=== PATIENT | male | born 1965 | race American Indian/Alaskan Native ===

== ENCOUNTER 2019-10-24 08:00 | Outpatient (CLI) | payer OTHER ==
[2019-10-17 12:32] LABS: Basophils % (Auto) 1.1 % (0.0-1.8); Eosinophils # (Auto) 0.4 K/mm3 (0.0-0.4); Eosinophils % (Auto) 8.4 % (0.0-4.3); Hematocrit 39.2 % (35.5-45.6); Hemoglobin 13.4 gm/dl (11.8-15.2); Lymphocytes % (Auto) 24.2 % (13.4-35.0); Mean Corpuscular HGB Conc 34 % (32-34); Mean Corpuscular Volume 100 fl (84-94); Monocytes # (Auto) 0.5 K/mm3 (0.0-0.8); Monocytes % (Auto) 12.1 % (0.0-7.3); Platelet Count 338 K/mm3 (140-440); Red Blood Count 3.94 M/mm3 (3.65-5.03)
[2019-10-17 12:44] LABS: INR 0.95 (0.87-1.13)
[2019-10-17 12:45] LABS: Partial Thromboplastin Time 23.8 Sec. (24.2-36.6)
[2019-10-17 13:30] LABS: Alanine Aminotransferase 11 units/L (7-56); Albumin 4.3 g/dL (3.9-5); BUN/Creatinine Ratio 10; Blood Urea Nitrogen 8 mg/dL (9-20); Hemolysis Index 30
[2019-10-17 14:33] VITALS: BP 115/68
--- NOTE | 2019-10-17 15:35 | Anesthesia Consultation ---
Anesthesia Consult and Med Hx Date of service: 10/24/19 - Airway Anesthetic Teeth Evaluation: Poor (denies loose teeth) ROM Head & Neck: Adequate Mental/Hyoid Distance: Adequate Mallampati Class: Class III Intubation Access Assessment: Possibly Difficult - Pulmonary Exam CTA: Yes - Cardiac Exam Cardiac Exam: RRR - Pre-Operative Health Status ASA Pre-Surgery Classification: ASA3 Proposed Anesthetic Plan: General - Pre-Anesthesia Comment Pre-Anesthesia Comments: Patient is currently taking ticagrelor (current as of 10/17/19) and therefore not a candidate for neuraxial anesthetic unless held for 7 days prior to surgery. - Pulmonary Hx Smoking: Yes Hx Respiratory Symptoms: No Hx Sleep Apnea: No (GRANT PRE SCREEN HIGH RISK) - Cardiovascular System Hx Hypertension: Yes Hx Heart Attack/AMI: Yes (01/2019) Hx Percutaneous Transluminal Coronary Angioplasty (PTCA): Yes (stent x1 01/2019; currently on ASA and ticagrelor) Hx Cardia Arrhythmia: No Hx Pacemaker: No Hx Internal Defibrillator: No - Central Nervous System CVA: No Hx Back Pain: Yes - Gastrointestinal Hx Gastroesophageal Reflux Disease: No - Endocrine Hx Renal Disease: No Hx Liver Disease: No Hx Insulin Dependent Diabetes: No Hx Non-Insulin Dependent Diabetes: No Hx Thyroid Disease: No - Other Systems Hx Cancer: Yes (hx anal cancer s/p chemo/radiation/surgery) Hx Obesity: No - Additional Comments Anesthesia Medical History Comments: Patient last saw service parts driver in 03/2019 and has not received cardiac clearance. Patient was instructed to schedule an appointment with cardiology prior to surgery for clearance and for recommendations regarding antiplatelet therapy.
[~2019-10-24 08:00] MED LIST: ACETAMINOPHEN 500 MG TAB PO SCH; GABAPENTIN 300 MG CAP PO NR; LACTATED RINGERS 1,000 ML IV SCH; MIDAZOLAM 2 MG/2 ML INJ IV NR; ceFAZolin/Water 2 GM/20 ML 2 GM/20 ML SYRINGE IV NR
== END 2019-10-24 08:01 | disposition home or self-care (01) ==
LOC: EDSTATUS 08:00 → OR 08:00
PROVIDERS: ATTEND Orthopaedic Surgery
DX: M13.851 Other specified arthritis, right hip (principal)
CPT/HCPCS: 36415; 80053; 85025; 85610; 85730

== ENCOUNTER 2020-07-02 09:30 | Day surgery (SDC) | payer OTHER ==
[2020-07-02] MEDS ORDERED: LIDOCAINE (1%) 10 MG/1 ML VIAL 20 ML MDV INFILTRATI ONE (12:52)
[2020-07-02] MEDS ORDERED: BUPIVACAINE/PF (0.5%) 5 MG/1 ML 30 ML VIAL INFILTRATI ONE (12:57)
--- NOTE | 2020-07-02 13:19 | Procedure Note ---
Date of procedure: 07/02/20 Pre-op diagnosis: Chronic low back pain Post-op diagnosis: same Procedure: Lumbar facet blocks at left L2 through L5 Procedure The patient was brought to the OR and placed prone onto the OR table, the lumbar spine was prepped and draped in the usual sterile manner. A timeout procedure was done to identify the patient and the correct levels of nerve block being performed the patient was awake during the procedure. Using C-arm fluoroscopy the L5 through L2 levels were visualized in both the PA and 45 oblique views 20-gauge spinal needles were inserted again under direct fluoroscopic control after placing the spinal needles and the correct position and Marcaine injection was performed using 1% without epinephrine. The patient tolerated the procedure and no complications Anesthesia: local Surgeon: SOPHIA CASANOVA Estimated blood loss: minimal Pathology: none Condition: stable Disposition: observation
[2020-07-02 13:45] VITALS: BP 126/88
--- NOTE | 2020-07-02 15:25 | XRay Report ---
INTRAOPERATIVE FLUOROSCOPY: LUMBAR SPINE INDICATION: Low back pain. Guidance for injection. TECHNIQUE: Intraoperative spot images were obtained during the procedure. FINDINGS: Left facet injections were performed at L2-L5. Please see the procedural report for further details. Fluoroscopy Time: 20 seconds. Fluoroscopy Images: 2. Signer Name: Luis Love MD Signed: 07/02/2020 3:21 PM Workstation Name: [email or web address]
== END 2020-07-02 09:31 | disposition home or self-care (01) ==
LOC: OR 09:30
PROVIDERS: ATTEND Orthopaedic Surgery
DX: M54.5 Low back pain (principal); G89.29 Other chronic pain; I25.10 Atherosclerotic heart disease of native coronary artery without angina pectoris; I25.2 Old myocardial infarction; I10 Essential (primary) hypertension; M19.90 Unspecified osteoarthritis, unspecified site; F17.210 Nicotine dependence, cigarettes, uncomplicated; E78.00 Pure hypercholesterolemia, unspecified; K21.9 Gastro-esophageal reflux disease without esophagitis; Z98.61 Coronary angioplasty status; Z79.899 Other long term (current) drug therapy; Z85.038 Personal history of other malignant neoplasm of large intestine; Z98.890 Other specified postprocedural states; Z86.2 Personal history of diseases of the blood and blood-forming organs and certain disorders involving the immune mechanism
CPT/HCPCS: 72100